=== PATIENT | female | born 2000 | race Caucasian/White ===

== ENCOUNTER 2021-03-15 07:44 | Day surgery (SDC) | payer OTHER ==
[~2021-03-15] VITALS: Ht 157.5 cm; Wt 52.1 kg
[~2021-03-15 07:44] MED LIST: SUGAMMADEX SODIUM 500 MG/5 ML VIAL (BRIDION) As Ordered ONE
[2021-03-15] MEDS ORDERED: propofoL 200 MG/20 ML VIAL As Ordered ONE (09:45)
[2021-03-15] MEDS ORDERED: LIDOCAINE 2% 100MG/5ML SDV (FOR ANES.) As Ordered ONE (09:45)
[2021-03-15] MEDS ORDERED: ONDANSETRON 4MG/2ML VIAL As Ordered ONE (09:46)
[2021-03-15] MEDS ORDERED: ROCURONIUM BROMIDE 50 MG/5 ML VIAL As Ordered ONE (09:46)
[2021-03-15] MEDS ORDERED: MIDAZOLAM INJ 2MG/2ML VIAL (J2250 PER 1MG) As Ordered ONE (09:46)
[2021-03-15] MEDS ORDERED: dexameTHASONE 4 MG/ML 1ML VIAL (J1100 PER 1MG) As Ordered ONE (09:46)
[2021-03-15] MEDS ORDERED: fentaNYL 100 MCG/2 ML INJECTION (J3010) As Ordered ONE (09:46)
[2021-03-15] MEDS ORDERED: METHYLENE BLUE 0.5% (5MG/ML) 10 ML AMP (PROVAYBLUE) As Ordered ONE (10:17)
[2021-03-15] MEDS ORDERED: OXYMETAZOLINE 0.05% NASAL SPRAY (AFRIN) As Ordered ONE (10:17)
[2021-03-15] MEDS ORDERED: LIDOCAINE W/EPINEPHRINE 1% 20ML VIAL As Ordered ONE (10:17)
[2021-03-15] MEDS ORDERED: METOCLOPRAMIDE INJ 10MG/2ML VIAL (J2765 PER 1) As Ordered ONE ×2 (11:01→13:02)
[2021-03-15] MEDS ORDERED: ACETAMINOPHEN 1000MG 100ML IV BTL (OFIRMEV) (J0131 PER 10MG) As Ordered ONE (11:01)
[2021-03-15] MEDS ORDERED: ONDANSETRON 4MG/2ML VIAL IV PRN (11:50)
[2021-03-15] MEDS ORDERED: LR 1,000 ML IV SCH (11:50)
[2021-03-15] MEDS ORDERED: METOCLOPRAMIDE INJ 10MG/2ML VIAL (J2765 PER 1) IV PRN (11:50)
[2021-03-15] MEDS ORDERED: HYDROMORPHONE HCL 0.5 MG/ 0.5 ML SYRINGE (J1170 PER 1) IV PRN (11:50)
[2021-03-15] MEDS ORDERED: PERCOCET 5MG/325MG TAB PO PRN ×2 (11:50→11:55)
[2021-03-15] MEDS ORDERED: fentaNYL 100 MCG/2 ML INJECTION (J3010) IV PRN (11:50)
[2021-03-15 13:50] VITALS: BP 106/66
[2021-03-15] MEDS ORDERED: PERCOCET PO (18:06)
[2021-03-15] MEDS ORDERED: DOXY-350 PO (18:06)
--- NOTE | 2021-03-17 13:52 | RO ---
OPERATIVE NOTE DATE OF OPERATION: 03/15/2021 PREOPERATIVE DIAGNOSIS: Deviated septum, chronic rhinitis. POSTOPERATIVE DIAGNOSIS: Deviated septum, chronic rhinitis. PROCEDURE: Septoplasty and partial reduction of inferior turbinates. SURGEON: Anuel Gonzalez MD. ENVIRONMENTAL RESEARCH SCIENTIST: ANESTHESIA: INDICATIONS: This is a 21-year-old with a history of left-sided nasal obstruction secondary to a significant caudal deflection of the septum into the left nasal cavity off the columella and presenting into the left nasal vestibule. DESCRIPTION OF PROCEDURE: Satisfactory general endotracheal anesthesia was administered. Pharyngeal pack placed. Nose prepared for surgery by placing cotton-soaked pledgets with Afrin solution into the nasal cavity bilaterally. One percent Xylocaine with 1:100,000 epinephrine was used to inject the nasal septum and inferior turbinates. A Frank incision was made on the left side of the nose. A mucoperichondrial flap and envelope was created on the left side of the nasal septum and carried down to the junction of the bony and cartilaginous septum. This was then with an elevator and an envelope was then created on the right side of the septum. Dennysmon scissors was used to make a high cut in the perpendicular plate in the midportion of the vomer and a central segment of bony septum was resected. Next, with the round knife on the [place] elevator, a strip of cartilage was resected from the floor of the nose, mobilizing the quadrilateral cartilage and creating a swinging door. Then a central segment of cartilaginous septum was resected, preserving a 1 cm dorsal and caudal strut. Double-action rongeur was used to take down deflected portions of the perpendicular plate as well. Finally, the maxillary crest spur was taken down after elevating mucoperiosteum off both sides of it with a chisel. A segment of the resected cartilage was morselized and placed back into the septal envelope. The incision was closed using an interrupted 5-0 chromic suture. Then a 4-0 plain suture was placed in a [id number] fashion through the two leaves of the mucoperichondrium to appose them. Next the turbinate surgery was done. He had markedly hypertrophic turbinates. They were medially infractured and using the turbinate Coblator probe two parallel passes of the probe were made with 10 second coblation times for each of the set points on the probe. Finally suction cautery was used to coagulate the posterior inferior tip of the inferior turbinate. A #15 blade was used to make an incision on the anterior tip of the inferior turbinate. Rodriguez splints were placed in nose and sewn to the columella with 2-0 Prolene suture. Care was taken to preserve a 1 cm dorsal caudal strut but as to break the spring of the caudal cartilage so that it would not return to its position off center. At the completion of the surgery, the septum was nicely tucked in to the columella by the mucoperichondrial suture which was used at the completion of the septoplasty. The pharyngeal pack was removed, throat suctioned. The patient was awakened and extubated. She went to recovery in satisfactory condition. She will be discharged home on Tylox for pain and doxycycline 100 mg b.i.d. She will be seen back in the office in three days for splint removal.
== END 2021-03-15 13:53 | disposition home or self-care (01) ==
LOC: M SDC 07:44
PROVIDERS: ATTEND Specialist
DX: J34.2 Deviated nasal septum (principal); J31.0 Chronic rhinitis
CPT/HCPCS: 30140; 30520; 81025; 88300; J0131; J1100; J2250; J2405; J2765; J3010; Q9968

== ENCOUNTER 2022-01-30 16:06 | Emergency (ER) | payer OTHER ==
[~2022-01-30] VITALS: Ht 157.5 cm; Wt 53.1 kg
[~2022-01-30 16:06] MED LIST changes: +DOXY-350 PO; +PERCOCET PO; -SUGAMMADEX SODIUM 500 MG/5 ML VIAL (BRIDION) As Ordered ONE
[2022-01-30 17:07] LABS: BASO % 0.2 % (0.0-1.0); EOS % 0.9 % (0.0-3.0); HEMATOCRIT 34.7 % (36.0-47.0); LYMPH # 1.9 10^3/uL (1.5-5.0); LYMPH % 41.5 % (24.0-44.0); MEAN CORPUSCULAR HEMOGLOBIN 24.2 pg (27.0-33.0); MEAN CORPUSCULAR HGB CONC 31.7 g/dl (32.0-36.5); MEAN CORPUSCULAR VOLUME 76.4 fl (80.0-96.0); MONO # 0.4 10^3/uL (0.0-0.8); MONO % 8.3 % (2.0-8.0); NEUTROPHILS # 2.3 10^3/uL (1.5-8.5); NEUTROPHILS % 48.9 % (36.0-66.0); PLATELET COUNT, AUTOMATED 353 10^3/uL (150-450); RED BLOOD COUNT 4.54 10^6/uL (4.00-5.40); WHITE BLOOD COUNT 4.6 10^3/uL (4.0-10.0)
[2022-01-30 18:26] VITALS: BP 129/73
== END 2022-01-30 18:31 | disposition home or self-care (01) ==
LOC: M ED 16:06
DX: O20.8 Other hemorrhage in early pregnancy (principal); O30.041 Twin pregnancy, dichorionic/diamniotic, first trimester; Z3A.01 Less than 8 weeks gestation of pregnancy; Z87.59 Personal history of other complications of pregnancy, childbirth and the puerperium

== ENCOUNTER 2022-03-08 15:21 | Emergency (ER) | payer OTHER ==
[~2022-03-08] VITALS: Ht 157.5 cm; Wt 48.1 kg
[2022-03-08] MEDS ORDERED: PREN27TA3 (15:34)
[2022-03-08] MEDS ORDERED: PROG1CAP8 (15:34)
[2022-03-08] MEDS ORDERED: PROM1SUP2 (15:34)
[2022-03-08 18:32] LABS: BASO % 0.2 % (0.0-1.0); EOS % 0.4 % (0.0-3.0); HEMATOCRIT 33.2 % (36.0-47.0); HEMOGLOBIN 10.9 g/dl (12.0-15.5); LYMPH # 1.4 10^3/uL (1.5-5.0); LYMPH % 24.8 % (24.0-44.0); MEAN CORPUSCULAR HEMOGLOBIN 24.7 pg (27.0-33.0); MEAN CORPUSCULAR HGB CONC 32.8 g/dl (32.0-36.5); MEAN CORPUSCULAR VOLUME 75.1 fl (80.0-96.0); MONO # 0.4 10^3/uL (0.0-0.8); MONO % 7.2 % (2.0-8.0); NEUTROPHILS # 3.8 10^3/uL (1.5-8.5); NEUTROPHILS % 67.2 % (36.0-66.0); PLATELET COUNT, AUTOMATED 306 10^3/uL (150-450); RED BLOOD COUNT 4.42 10^6/uL (4.00-5.40); WHITE BLOOD COUNT 5.6 10^3/uL (4.0-10.0)
[2022-03-08] MEDS ORDERED: NS 1,000 ML IV ONE (18:50)
[2022-03-08] MEDS ORDERED: METOCLOPRAMIDE INJ 10MG/2ML VIAL (J2765 PER 1) IV ONE (18:50)
[2022-03-08 19:37] LABS: ALBUMIN 3.1 GM/DL (3.2-5.2); ALT/SGPT 28 U/L (12-78); BILIRUBIN,DIRECT 0.1 MG/DL (0.0-0.2); BILIRUBIN,TOTAL 0.3 MG/DL (0.2-1.0); BLOOD UREA NITROGEN 8 MG/DL (7-18); CALCIUM LEVEL 8.9 MG/DL (8.5-10.1); CARBON DIOXIDE LEVEL 23 MEQ/L (21-32); CHLORIDE LEVEL 108 MEQ/L (98-107); GLOMERULAR FILTRATION RATE > 60.0 (>60); GLUCOSE, FASTING 94 MG/DL (70-100); HCG, SERUM QUANTITATIVE 278162 MIU/ML; LIPASE 78 U/L (73-393); SODIUM LEVEL 137 MEQ/L (136-145); TOTAL PROTEIN 6.7 GM/DL (6.4-8.2)
[2022-03-08] MEDS ORDERED: ONDA4TAB6 PO (21:31)
[2022-03-08] MEDS ORDERED: REGL10TA6 PO (21:31)
[2022-03-08 21:55] VITALS: BP 99/59
== END 2022-03-08 22:01 | disposition home or self-care (01) ==
LOC: M ED 15:21
DX: O21.8 Other vomiting complicating pregnancy (principal); O30.001 Twin pregnancy, unspecified number of placenta and unspecified number of amniotic sacs, first trimester; Z3A.11 11 weeks gestation of pregnancy
CPT/HCPCS: 80048; 80076; 81001; 83690; 84702; 85025; 96361; 96374; 99284; J2765

== ENCOUNTER 2022-03-15 11:31 | Inpatient (IN) | payer OTHER ==
[~2022-03-15] VITALS: Ht 157.5 cm; Wt 48.0 kg
[~2022-03-15 11:31] MED LIST changes: +ONDA4TAB6 PO; +PREN27TA3; +PROG1CAP8; +PROM1SUP2; +REGL10TA6 PO
[2022-03-15] MEDS ORDERED: PROMETHAZINE 25MG/ML 1ML VIAL IV SCH (12:00)
[2022-03-15] MEDS: LR 1,000 ML IV SCH ×2 (14:05→22:03)
[2022-03-15 14:30] VITALS: BP 109/61
[2022-03-15] MEDS: METOCLOPRAMIDE INJ 10MG/2ML VIAL (J2765 PER 1) IV SCH ×2 (15:09→22:03)
[2022-03-15] MEDS: ONDANSETRON 4MG/2ML VIAL IV SCH (15:09)
[2022-03-15 18:10] VITALS: BP 100/51
[2022-03-15] MEDS: PROMETHAZINE 25MG/ML 1ML VIAL IV SCH (20:39)
[2022-03-15 22:10] VITALS: BP 104/53
[2022-03-16 02:00] VITALS: BP 106/51
[2022-03-16] MEDS: ONDANSETRON 4MG/2ML VIAL IV SCH ×2 (02:23→13:52)
[2022-03-16] MEDS: PROMETHAZINE 25MG/ML 1ML VIAL IV SCH ×2 (02:24→07:34)
[2022-03-16] MEDS: LR 1,000 ML IV SCH ×2 (05:16→12:31)
[2022-03-16 06:00] VITALS: BP 106/52
[2022-03-16] MEDS: METOCLOPRAMIDE INJ 10MG/2ML VIAL (J2765 PER 1) IV SCH ×2 (06:00→13:52)
[2022-03-16 07:15] LABS: HEMOGLOBIN 9.8 g/dl (12.0-15.5); MEAN CORPUSCULAR HEMOGLOBIN 24.7 pg (27.0-33.0); MEAN CORPUSCULAR HGB CONC 32.7 g/dl (32.0-36.5); MEAN CORPUSCULAR VOLUME 75.6 fl (80.0-96.0); PLATELET COUNT, AUTOMATED 233 10^3/uL (150-450); RED BLOOD COUNT 3.97 10^6/uL (4.00-5.40); WHITE BLOOD COUNT 5.3 10^3/uL (4.0-10.0)
[2022-03-16 08:26] LABS: ALBUMIN 2.7 GM/DL (3.2-5.2); ALT/SGPT 16 U/L (12-78); BILIRUBIN,TOTAL 0.5 MG/DL (0.2-1.0); BLOOD UREA NITROGEN 9 MG/DL (7-18); CALCIUM LEVEL 9.1 MG/DL (8.5-10.1); CARBON DIOXIDE LEVEL 17 MEQ/L (21-32); CHLORIDE LEVEL 108 MEQ/L (98-107); CREATININE FOR GFR 0.31 MG/DL (0.55-1.30); GLOMERULAR FILTRATION RATE > 60.0 (>60); GLUCOSE, FASTING 47 MG/DL (70-100); POTASSIUM SERUM 4.2 MEQ/L (3.5-5.1); SODIUM LEVEL 136 MEQ/L (136-145); TOTAL PROTEIN 5.8 GM/DL (6.4-8.2)
[2022-03-16 10:00] VITALS: BP 106/57
[2022-03-16 14:00] VITALS: BP 115/66
== END 2022-03-16 18:00 | disposition home or self-care (01) | DRG 833 ==
LOC: M OBS 13:31
PROVIDERS: ADMIT Obstetrics & Gynecology; ATTEND Obstetrics & Gynecology
DX: O21.1 Hyperemesis gravidarum with metabolic disturbance (principal); O30.041 Twin pregnancy, dichorionic/diamniotic, first trimester; Z3A.12 12 weeks gestation of pregnancy; Z87.51 Personal history of pre-term labor

== ENCOUNTER 2022-03-25 17:45 | Emergency (ER) | payer OTHER ==
[~2022-03-25] VITALS: Ht 157.5 cm; Wt 48.1 kg
[2022-03-25] MEDS ORDERED: ASPI81TA26 (18:02)
[2022-03-25 19:01] LABS: BASO % 0.3 % (0.0-1.0); EOS % 0.5 % (0.0-3.0); HEMOGLOBIN 10.7 g/dl (12.0-15.5); LYMPH # 2.1 10^3/uL (1.5-5.0); LYMPH % 27.7 % (24.0-44.0); MEAN CORPUSCULAR HEMOGLOBIN 24.7 pg (27.0-33.0); MEAN CORPUSCULAR HGB CONC 32.4 g/dl (32.0-36.5); MEAN CORPUSCULAR VOLUME 76.2 fl (80.0-96.0); MONO # 0.6 10^3/uL (0.0-0.8); MONO % 7.5 % (2.0-8.0); NEUTROPHILS # 4.8 10^3/uL (1.5-8.5); NEUTROPHILS % 63.6 % (36.0-66.0); PLATELET COUNT, AUTOMATED 331 10^3/uL (150-450); RED BLOOD COUNT 4.33 10^6/uL (4.00-5.40); WHITE BLOOD COUNT 7.6 10^3/uL (4.0-10.0)
[2022-03-25 20:05] LABS: BLOOD UREA NITROGEN 6 MG/DL (7-18); CARBON DIOXIDE LEVEL 26 MEQ/L (21-32); CHLORIDE LEVEL 105 MEQ/L (98-107); CREATININE FOR GFR 0.37 MG/DL (0.55-1.30); GLOMERULAR FILTRATION RATE > 60.0 (>60); GLUCOSE, FASTING 85 MG/DL (70-100); POTASSIUM SERUM 3.8 MEQ/L (3.5-5.1); SODIUM LEVEL 138 MEQ/L (136-145)
[2022-03-25 20:06] LABS: HCG, SERUM QUANTITATIVE 265234 MIU/ML
[2022-03-25 21:56] VITALS: BP 110/56
== END 2022-03-25 21:59 | disposition home or self-care (01) ==
LOC: M ED 17:45
DX: O44.01 Complete placenta previa NOS or without hemorrhage, first trimester (principal); O30.041 Twin pregnancy, dichorionic/diamniotic, first trimester; Z3A.13 13 weeks gestation of pregnancy

== ENCOUNTER 2022-05-10 15:27 | Outpatient (CLI) | payer OTHER ==
[~2022-05-10] VITALS: Ht 157.5 cm; Wt 53.7 kg
[~2022-05-10 15:27] MED LIST changes: +ASPI81TA26
[2022-05-10 15:42] VITALS: BP 110/66
[2022-05-10 17:27] VITALS: BP 108/62
[2022-07-06] MEDS ORDERED: TUMS500C PO (15:49)
== END 2022-07-06 22:29 | disposition home or self-care (01) ==
LOC: M LDO 15:27
PROVIDERS: ATTEND Obstetrics & Gynecology
DX: O46.92 Antepartum hemorrhage, unspecified, second trimester (principal); O30.042 Twin pregnancy, dichorionic/diamniotic, second trimester; Z3A.20 20 weeks gestation of pregnancy; Z87.59 Personal history of other complications of pregnancy, childbirth and the puerperium
CPT/HCPCS: 76811; 76812; 76817; G0378; G0463

== ENCOUNTER 2022-06-17 06:34 | Outpatient (CLI) | payer OTHER ==
[~2022-06-17] VITALS: Ht 157.5 cm; Wt 57.0 kg
[2022-06-17] MEDS ORDERED: NS 1,000 ML IV SCH (07:00)
[2022-06-17] MEDS ORDERED: IRON SUCROSE 300 MG in NS 250 ML OVER 90 MIN. IV ONE (07:00)
[2022-06-17] MEDS ORDERED: EPINEPHrine INJ 1 MG/ML 1ML AMP IM PRN (07:01)
[2022-06-17] MEDS ORDERED: diphenhydrAMINE 50MG/ML VIAL (J1200) IV PRN (07:01)
[2022-06-17] MEDS ORDERED: ALBUTEROL SULFATE 2.5 MG/0.5 ML INH NEB SOLN INH PRN (07:01)
[2022-06-17] MEDS ORDERED: methylPREDNISolone 125MG 2ML VIAL IV PRN (07:01)
[2022-06-17 09:45] VITALS: BP 130/61
[2022-06-17 10:30] VITALS: BP 112/59
[2022-06-17 12:00] VITALS: BP 121/56
== END 2022-06-17 12:00 | disposition home or self-care (01) ==
LOC: M INFU 06:34
PROVIDERS: ATTEND Obstetrics & Gynecology
DX: D64.9 Anemia, unspecified (principal)

== ENCOUNTER 2022-06-17 06:52 | Outpatient (CLI) | payer OTHER ==
[~2022-06-17] VITALS: Ht 157.5 cm; Wt 59.9 kg
[2022-06-17 09:41] LABS: AMORPHOUS SEDIMENT SMALL (NEGATIVE); APPEARANCE, URINE CLOUDY (CLEAR); BACTERIA, URINE AUTO 1+ (NEGATIVE); BILIRUBIN, URINE AUTO NEGATIVE (NEGATIVE); BLOOD, URINE BLOOD NEGATIVE (NEGATIVE); COLOR, URINE YELLOW (YELLOW); GLUCOSE, URINE (UA) AUTO NEGATIVE (NEGATIVE); KETONE, URINE AUTO NEGATIVE (NEGATIVE); LEUKOCYTE ESTERASE, URINE AUTO NEGATIVE (NEGATIVE); MUCUS, URINE SMALL (NEGATIVE); NITRITE, URINE AUTO NEGATIVE (NEGATIVE); PROTEIN, URINE AUTO NEGATIVE (NEGATIVE); RBC, URINE AUTO 1 /HPF (0-3); SQUAMOUS EPITHELIAL CELL UR AU 0 /HPF (0-6); UROBILINOGEN, URINE AUTO 0.2 mg/dL (0.0-2.0); WBC, URINE AUTO 0 /HPF (0-3)
[2022-06-17 11:03] LABS: GC DNA AMPLIFICATION NEGATIVE (NEGATIVE)
== END 2022-06-17 09:16 | disposition home or self-care (01) ==
LOC: M LDO 06:52
PROVIDERS: ATTEND Obstetrics & Gynecology
DX: O30.042 Twin pregnancy, dichorionic/diamniotic, second trimester (principal); Z3A.25 25 weeks gestation of pregnancy; O26.892 Other specified pregnancy related conditions, second trimester; R25.2 Cramp and spasm
CPT/HCPCS: 59025; 81001; 87086; 87810; 87850; 96365; 96366; G0463; J1756

== ENCOUNTER 2022-06-24 07:45 | Outpatient (CLI) | payer OTHER ==
[~2022-06-24] VITALS: Ht 157.5 cm; Wt 57.0 kg
[2022-06-24 07:45] VITALS: BP 119/58
[~2022-06-24 07:45] MED LIST changes: +ALBUTEROL SULFATE 2.5 MG/0.5 ML INH NEB SOLN INH PRN; +EPINEPHrine INJ 1 MG/ML 1ML AMP IM PRN; +IRON SUCROSE 300 MG in NS 250 ML OVER 90 MIN. IV ONE; +NS 1,000 ML IV SCH; +diphenhydrAMINE 50MG/ML VIAL (J1200) IV PRN; +methylPREDNISolone 125MG 2ML VIAL IV PRN
[2022-06-24 09:30] VITALS: BP 97/50
[2022-06-24 10:40] VITALS: BP 100/48
== END 2022-06-24 10:50 | disposition home or self-care (01) ==
LOC: M INFU 07:45
PROVIDERS: ATTEND Obstetrics & Gynecology
DX: D64.9 Anemia, unspecified (principal)
CPT/HCPCS: 96365; 96366; J1756

== ENCOUNTER 2022-07-01 07:55 | Outpatient (CLI) | payer OTHER ==
[~2022-07-01] VITALS: Ht 157.5 cm; Wt 59.0 kg
[~2022-07-01 07:55] MED LIST changes: -IRON SUCROSE 300 MG in NS 250 ML OVER 90 MIN. IV ONE; -NS 1,000 ML IV SCH
[2022-07-01 07:56] VITALS: BP 110/58
[2022-07-01] MEDS ORDERED: IRON SUCROSE 300 MG in NS 250 ML OVER 90 MIN. IV ONE (08:00)
[2022-07-01] MEDS ORDERED: NS 1,000 ML IV SCH (08:00)
[2022-07-01 10:32] VITALS: BP 119/57
== END 2022-07-01 10:35 | disposition home or self-care (01) ==
LOC: M INFU 07:55
PROVIDERS: ATTEND Obstetrics & Gynecology
DX: D64.9 Anemia, unspecified (principal)
CPT/HCPCS: 96365; 96366; J1756

== ENCOUNTER → 2022-07-06 | Outpatient (CLI) | payer OTHER ==
[~2022-07-06] VITALS: Ht 157.5 cm; Wt 62.0 kg
[2022-07-06] VITALS (9 sets, daily range): BP systolic 102–114; BP diastolic 57–75
[~2022-07-06] MED LIST changes: -ALBUTEROL SULFATE 2.5 MG/0.5 ML INH NEB SOLN INH PRN; +CALCIUM CARBONATE 500 MG CHEW U/D PO ONE; -EPINEPHrine INJ 1 MG/ML 1ML AMP IM PRN; +HOME MED LIST COMPLETE! XX SCH; +TUMS500C PO; -diphenhydrAMINE 50MG/ML VIAL (J1200) IV PRN; -methylPREDNISolone 125MG 2ML VIAL IV PRN
[2022-07-06 16:52] LABS: HEMATOCRIT 28.1 % (36.0-47.0); HEMOGLOBIN 8.4 g/dl (12.0-15.5); MEAN CORPUSCULAR HEMOGLOBIN 23.5 pg (27.0-33.0); MEAN CORPUSCULAR HGB CONC 29.9 g/dl (32.0-36.5); MEAN CORPUSCULAR VOLUME 78.7 fl (80.0-96.0); PLATELET COUNT, AUTOMATED 315 10^3/uL (150-450); RED BLOOD COUNT 3.57 10^6/uL (4.00-5.40); WHITE BLOOD COUNT 8.3 10^3/uL (4.0-10.0)
== END ==
LOC: M LDO 15:10
PROVIDERS: ATTEND Obstetrics & Gynecology
DX: O30.043 Twin pregnancy, dichorionic/diamniotic, third trimester (principal); Z3A.29 29 weeks gestation of pregnancy; O99.013 Anemia complicating pregnancy, third trimester
CPT/HCPCS: 59025; 85027; 86850; 86900; 86901; 86920; G0463; P9016

== ENCOUNTER 2022-07-08 08:15 | Outpatient (CLI) | payer OTHER ==
[~2022-07-08] VITALS: Ht 157.5 cm; Wt 66.4 kg
[2022-07-08 08:15] VITALS: BP 121/65
[~2022-07-08 08:15] MED LIST changes: +ALBUTEROL SULFATE 2.5 MG/0.5 ML INH NEB SOLN INH PRN; -CALCIUM CARBONATE 500 MG CHEW U/D PO ONE; +EPINEPHrine INJ 1 MG/ML 1ML AMP IM PRN; -HOME MED LIST COMPLETE! XX SCH; +IRON SUCROSE 300 MG in NS 250 ML OVER 90 MIN. IV ONE; +NS 1,000 ML IV SCH; +diphenhydrAMINE 50MG/ML VIAL (J1200) IV PRN; +methylPREDNISolone 125MG 2ML VIAL IV PRN
[2022-07-08 10:12] VITALS: BP 120/62
== END 2022-07-08 10:15 | disposition home or self-care (01) ==
LOC: M INFU 08:15
PROVIDERS: ATTEND Obstetrics & Gynecology
DX: D64.9 Anemia, unspecified (principal)
CPT/HCPCS: 96365; 96366; J1756

== ENCOUNTER 2022-07-13 10:58 | Outpatient (CLI) | payer OTHER ==
[~2022-07-13] VITALS: Ht 157.5 cm; Wt 62.1 kg
[~2022-07-13 10:58] MED LIST changes: -ALBUTEROL SULFATE 2.5 MG/0.5 ML INH NEB SOLN INH PRN; -EPINEPHrine INJ 1 MG/ML 1ML AMP IM PRN; -IRON SUCROSE 300 MG in NS 250 ML OVER 90 MIN. IV ONE; -NS 1,000 ML IV SCH; -diphenhydrAMINE 50MG/ML VIAL (J1200) IV PRN; -methylPREDNISolone 125MG 2ML VIAL IV PRN
[2022-07-13 11:39] VITALS: BP 111/71
[2022-07-13] MEDS ORDERED: PENICILLIN G POTASSIUM IV 2.5 MU in IV 1 EA IV SCH (13:05)
[2022-07-13] MEDS ORDERED: MAGNESIUM *L&D* 4GM/100ML BAG (40MG/ML) IV ONE (13:05)
[2022-07-13] MEDS ORDERED: NS 1,000 ML IV SCH (13:05)
[2022-07-13] MEDS ORDERED: PENICILLIN G POTASSIUM IV 5 MU in D5W MINI-BAG PLUS 100 ML IV ONE (13:30)
[2022-07-13] MEDS ORDERED: BETAMETHASONE SOLUSPAN 6MG/ML 5ML VIAL (J0702 PER 3MG) IM SCH (13:30)
[2022-07-13] MEDS ORDERED: MAG Sulf (OBGYN) 20GM/500ML 20,000 MG in IV 1 EA IV SCH (14:25)
== END 2022-07-13 16:00 | disposition home or self-care (01) ==
LOC: M LDO 10:58
PROVIDERS: ATTEND Obstetrics & Gynecology
DX: O30.043 Twin pregnancy, dichorionic/diamniotic, third trimester (principal); Z3A.29 29 weeks gestation of pregnancy; O32.1XX2 Maternal care for breech presentation, fetus 2; O99.013 Anemia complicating pregnancy, third trimester; Z87.51 Personal history of pre-term labor; O60.03 Preterm labor without delivery, third trimester
CPT/HCPCS: 59025; 76815; 76817; 76820; 96372; G0463; J0702; J3475